=== PATIENT | male | born 1985 | race Caucasian/White ===

== ENCOUNTER → 2019-05-16 09:03 | Outpatient (CLI) | payer OTHER, SELFPAY ==
[2019-05-16 10:40] LABS: Hematocrit 42.4 % (41-53); Hemoglobin 14.5 g/dL (13.5-17.5); Mean Corpuscular HGB Conc 34.2 % (30-36); Mean Corpuscular Hemoglobin 32.5 PG (26-34); Mean Corpuscular Volume 94.9 fL (80-100); Platelet Count 217 X10^3/uL (150-400); Red Blood Cell Count 4.46 X10^6/uL (4.5-5.9); Red Cell Distribution Width 13.1 % (11.6-14.8); White Blood Cell Count 5.3 X10^3/uL (4.5-11.0)
[2019-05-16 11:10] LABS: Alanine Aminotransferase 17 IU/L (21-72); Albumin 4.8 g/dL (3.5-5.0); Albumin Globulin Ratio 1.8 (1.0-2.8); Alkaline Phosphatase 73 U/L (38-126); Aspartate Aminotransferase 26 IU/L (17-59); BUN Creatinine Ratio 15.6 (6-22); Blood Urea Nitrogen 14 mg/dL (9-20); Calcium 9.7 mg/dL (8.4-10.2); Carbon Dioxide 28 mmol/L (22-32); Chloride 102 mmol/L (98-107); Cholesterol 186 mg/dL (140-199); Estimated Glomerular Filt Rate > 60.0 mL/min (>60); Globulin 2.7 g/dL (1.7-4.1); Glucose 88 mg/dL (70-100); HDL Cholesterol 79 mg/dL (40-60); HEMOLYSIS < 15 (0-50); LDL Cholesterol Calculated 94 mg/dL (<100); Potassium 4.7 mmol/L (3.4-5.1); Sodium 140 mmol/L (137-145); Total Protein 7.5 g/dL (6.3-8.2); Triglycerides 65 mg/dL (35-150)
[2019-05-16 11:47] LABS: Neutrophils Absolute Manual 2491 /uL (3000-5900); RBC Morphology Normal Morphology; Total Cells Counted 100
== END ==
PROVIDERS: Visit Provider Family Medicine
DX: E78.5 Hyperlipidemia, unspecified (principal)
CPT/HCPCS: 36415; 80053; 80061; 85025

== ENCOUNTER → 2020-10-30 09:52 | Outpatient (CLI) | payer OTHER, SELFPAY ==
[2020-10-30 10:37] LABS: Influenza A - CEPHEID Flu A NEGATIVE (NEGATIVE); Influenza B - CEPHEID Flu B NEGATIVE (NEGATIVE)
[2020-10-30 10:54] LABS: COVID19 -Nasal RAPID POSITIVE (Negative)
== END ==
PROVIDERS: PCP Family Medicine; Visit Provider Nurse Practitioner
DX: U07.1 COVID-19 (principal)
CPT/HCPCS: 87502; 87635

== ENCOUNTER → 2021-06-24 15:31 | Outpatient (CLI) | payer OTHER, SELFPAY ==
[2021-06-24 16:25] LABS: Semen Sperm Prescence Post-Vas Present (ABSENT)
== END ==
PROVIDERS: PCP Family Medicine; Referring Provider Family Medicine; Visit Provider Family Medicine
DX: Z98.52 Vasectomy status (principal)
CPT/HCPCS: 89321

== ENCOUNTER → 2021-07-23 11:16 | Outpatient (ROUT) | payer OTHER, SELFPAY ==
[2021-07-23 11:39] LABS: Semen Sperm Prescence Post-Vas Present (ABSENT)
[2021-07-23 16:11] LABS: Sperm Count 1 x10^6/mL (20-150)
== END ==
PROVIDERS: Visit Provider Family Medicine
DX: Z98.52 Vasectomy status (principal)
CPT/HCPCS: 89321

== ENCOUNTER 2022-10-13 15:14 | Emergency (ER) | payer OTHER, SELFPAY ==
[2022-10-13 15:24] VITALS: BP 131/82; PULSE 110; RESP 18; TEMP 36.8; O2SAT 96; BMI 27.3
--- NOTE | 2022-10-13 15:27 | DI.RAD.S_ITS ---
PROCEDURE: XR HAND RT MIN 3V INDICATIONS: pain after injury TECHNIQUE: 3 views of the hand(s) acquired. COMPARISON: None. FINDINGS: Bones: No fractures or dislocations. Carpal bones are normally aligned. No suspicious bony lesions. Soft tissues: No suspicious soft tissue calcifications. IMPRESSION: No acute fracture. No osseous lesion. If symptoms and/or clinical suspicion for pathology persist, further assessment with repeat, or advanced imaging (e.g., CT, MRI, or bone scan) may be helpful for further assessment. Dictated by: Kay Ludwig M.D. on 10/13/2022 at 16:26 Approved by: Kay Ludwig M.D. on 10/13/2022 at 16:26
--- NOTE | 2022-10-13 15:45 | ED.GENADULT ---
HPI - General Adult General Chief complaint: Extremity Injury, Upper Stated complaint: rt hand injury Time Seen by Provider: 10/13/22 15:30 Source: patient Mode of arrival: Ambulatory History of Present Illness HPI narrative: 37-year-old male who is here for evaluation of a right hand injury. He is right-hand dominant. He did hit his hand while at work. He has pain along little and ring finger on the right. No interventions prior to arrival. No other injuries from the event. Related Data Previous Rx's Medication Instructions Recorded diazepam 10 mg tablet (Valium) 10 mg PO DAILY #2 tabs 02/21/21 hydroxyzine HCl 25 mg tablet See Rx Instructions PO BID PRN 04/30/21 anxiety #60 tabs sertraline 100 mg tablet 200 mg PO DAILY #180 tabs 10/22/21 Allergies Allergy/AdvReac Type Severity Reaction Status Date / Time Penicillins Allergy Mild Rash Verified 10/13/22 15:23 Review of Systems Constitutional Constitutional: Reports system reviewed and no additional complaints, except as documented Musculoskeletal Musculoskeletal: Reports system reviewed and no additional complaints, except as documented Integumentary/Breasts Skin/Breast: Reports system reviewed and no additional complaints, except as documented Neurologic Neurologic: Reports system reviewed and no additional complaints, except as documented Patient History Medical History Chicken pox (~1988) Color blindness Encounter for vasectomy counseling Whooping cough (~1998) Surgical History (Updated 07/24/21 @ 11:05 by Kerry Amezcua) Anesthesia History of appendectomy (~2008) Family History Father History of heart disease Hyperlipidemia Grandmother Multiple sclerosis Grandfather History of heart disease Grandmother History of heart disease Hyperlipidemia Hypertension Social History marital status: Smoking Status: Never smoker alcohol intake: current (ON OCCASION ) substance use type: does not use Smoking Status: Never smoker Substance Use Type: does not use Exam Initial Vital Signs Initial Vital Signs: Vital Signs Temperature 98.2 F 10/13/22 15:24 Pulse Rate 110 H 10/13/22 15:24 Respiratory Rate 18 10/13/22 15:24 Blood Pressure 131/82 10/13/22 15:24 Pulse Oximetry 96 10/13/22 15:24 Oxygen Delivery Method 10/13/22 15:24 Cardio Pulses: radial pulses present on the right Skin General: no rashes or lesions noted Neuro General: patient alert and patient awake Sensory Exam: no sensory deficits noted Extrem Other: Right elbow and right wrist unremarkable. Does have tenderness along the 4th and 5th metacarpals of the right hand. The MCP joints are also somewhat tender to palpation but he can flex and extend. No deformity noted. The PIP and D IP joints unremarkable. Course Orders Ordered: ED Orders 10/13/22 15:27 XR hand RT min 3V Stat Vital Signs Vital signs: Vital Signs - 8 hr 10/13/22 15:24 Temperature 98.2 F Pulse Rate 110 H Respiratory Rate 18 Blood Pressure 131/82 Pulse Oximetry 96 Oxygen Delivery Method Room Air Medical Decision Making Imaging Data Extremity x-ray #1: Radiologist's Impression: [address] [address] XRay Report Signed Patient: Pawan Shanks MR#: [id number] : 1985 Acct:[id number] Age/Sex: 37 / M Date of Service: 10/13/22 Loc: ED Accession Number: [id number] ?? Procedure: XR hand RT min 3V Ordering Provider: Dimitris Yeboah D.O. PROCEDURE:? XR HAND RT MIN 3V ? INDICATIONS:? pain after injury ? TECHNIQUE:? 3 views of the hand(s) acquired.? ? COMPARISON:? None. ? FINDINGS:? ? Bones:? No fractures or dislocations.? Carpal bones are normally aligned.? No suspicious bony lesions.? ? Soft tissues:? No suspicious soft tissue calcifications.? ? ? IMPRESSION:? No acute fracture. No osseous lesion. If symptoms and/or clinical suspicion for pathology persist, further assessment with repeat, or advanced imaging (e.g., CT, MRI, or bone scan) may be helpful for further assessment. ? ? Dictated by: Kay Ludwig M.D. on 10/13/2022 at 16:26 ? ? Approved by: Kay Ludwig M.D. on 10/13/2022 at 16:26?? MDM Narrative Medical decision making narrative: Hand x-ray is unremarkable. No fractures nor dislocation. He is neurovascularly intact. I did discuss this with him. We did discuss conservative measures and return precautions. He expressed understanding and agreement. Discharge Plan Departure Patient Disposition: Home Clinical Impression: Contusion of hand, right Instructions: How To Perform RICE (Rest, Ice, Compress, Elevate) Activity Restrictions/Additional Instructions: No fractures were noted on the x-rays. You can use ice over your right hand as needed. Return to the emergency department for any new or worsening symptoms. Prescriptions: No Action diazepam [Valium] 10 mg tablet 10 mg PO DAILY Qty: 2 0RF Rx Instructions: take one 1 hour before procedure may repeat if needed hydroxyzine HCl 25 mg tablet See Rx Instructions PO BID PRN (Reason: anxiety) Qty: 60 0RF Rx Instructions: Take 1/2 to 1 tab up to twice daily as needed for severe anxiety. sertraline 100 mg tablet 200 mg PO DAILY Qty: 180 3RF Referrals: Familia Gentile MD [Primary Care Provider] -
== END 2022-10-13 16:54 | disposition home or self-care (01) ==
PROVIDERS: Emergency Provider Emergency Medicine; PCP Family Medicine
DX: S60.221A Contusion of right hand, initial encounter (principal); W22.8XXA Striking against or struck by other objects, initial encounter; Y99.0 Civilian activity done for income or pay
CPT/HCPCS: 73130; 99281; 99283